=== PATIENT | male | born 1985 | race African-American/Black ===

== ENCOUNTER 2020-08-24 09:54 | Emergency (ER) | payer OTHER ==
[~2020-08-24] VITALS: Ht 180.3 cm; Wt 90.7 kg
[2020-08-24] MEDS ORDERED: LORazepam 2MG/ML-1ML VIAL IV ONE (10:15)
[2020-08-24] MEDS ORDERED: SODIUM CHLORIDE 0.9% 2,000 ML IV ONE (10:15)
[2020-08-24 10:28] LABS: Basophils # (auto) 0.1 10 ^3/uL (0-0.2); Basophils % (auto) 0.6 % (0.0-2.0); Eosinophils # (auto) 0.1 10 ^3/uL (0-0.8); Hematocrit 42.5 % (41.0-53.0); Hemoglobin 14.6 g/dL (13.5-17.5); Lymphocytes # (auto) 2.2 10 ^3/uL (0.4-5.4); Lymphocytes % (auto) 23.6 % (10.0-50.0); Mean Corpuscular Hgb Conc. 34.5 g/dL (32.0-36.0); Mean Corpuscular Volume 89.9 fL (80.0-100.0); Monocytes % (auto) 10.5 % (0.0-12.0); Neutrophils # (auto) 5.9 10 ^3/uL (1.6-8.6); Neutrophils % (auto) 64.3 % (37.0-80.0); Platelet Count (auto) 310 10^3/uL (140-450); Red Blood Cells 4.72 10^6/uL (4.5-5.90); White Blood Cell 9.2 10^3/uL (4.4-10.8)
[2020-08-24] MEDS ORDERED: SODIUM CHLORIDE 0.9% 1,000 ML IV ONE ×2 (10:30)
[2020-08-24 10:50] LABS: Albumin 4.1 g/dL (3.4-5.0); Anion Gap 5 (5-15); Blood Alcohol < 3.0 mg/dL (0-5); Blood Urea Nitrogen 15 mg/dL (7-18); Calcium 8.9 mg/dL (8.5-10.1); Carbon Dioxide 27 mmol/L (21-32); Chloride 107 mmol/L (98-107); Glucose 89 mg/dL (74-106); Potassium 3.6 mmol/L (3.5-5.1); Sodium 139 mmol/L (136-145)
[2020-08-24 10:53] LABS: Alanine Aminotransferase 30 U/L (16-61); Alkaline Phosphatase 107 U/L (45-117); Aspartate Aminotransferase 26 U/L (15-37); BUN/Creatinine Ratio 15.2; Bilirubin, Total 1.8 mg/dL (0.2-1.0); GFR African American 111 mL/min; GFR Non-African American 92 mL/min; Total Protein 7.8 g/dL (6.4-8.2)
[2020-08-24 12:10] VITALS: BP 110/65
== END 2020-08-24 14:55 | disposition home or self-care (01) ==
LOC: ER 09:54 → EDBD 09:54 → ER 14:55
DX: F41.9 Anxiety disorder, unspecified (principal); F12.10 Cannabis abuse, uncomplicated; F15.10 Other stimulant abuse, uncomplicated; Z59.0 Homelessness
CPT/HCPCS: 36415; 80053; 80320; 85025; 96361; 96374; 99283; J2060; J7030; 96367; 96368

== ENCOUNTER 2020-08-25 05:15 | Emergency (ER) | payer SELFPAY ==
[~2020-08-25] VITALS: Ht 180.3 cm; Wt 99.8 kg
[2020-08-25 07:46] VITALS: BP 131/88
[2020-08-25] MEDS ORDERED: KETOROLAC TROMETH 60MG/2ML VIAL IM ONE (08:00)
== END 2020-08-25 08:15 | disposition home or self-care (01) ==
LOC: ER 05:15
DX: L03.012 Cellulitis of left finger (principal); F17.210 Nicotine dependence, cigarettes, uncomplicated; F15.10 Other stimulant abuse, uncomplicated; F12.10 Cannabis abuse, uncomplicated; Z59.0 Homelessness
CPT/HCPCS: J1885

== ENCOUNTER 2022-10-07 22:16 | Emergency (ER) | payer MEDICAID, OTHER ==
[~2022-10-07] VITALS: Ht 180.3 cm; Wt 83.6 kg
[2022-10-08 04:26] LABS: Basophils # (auto) 0.1 10 ^3/uL (0-0.2); Basophils % (auto) 0.6 % (0.0-2.0); Eosinophils # (auto) 0.3 10 ^3/uL (0-0.8); Eosinophils % (auto) 3.7 % (0.0-7.0); Hematocrit 43.1 % (41.0-53.0); Mean Corpuscular Hemoglobin 32.9 pg (28.0-32.0); Mean Corpuscular Hgb Conc. 34.9 g/dL (32.0-36.0); Mean Corpuscular Volume 94.2 fL (80.0-100.0); Monocytes % (auto) 11.8 % (0.0-12.0); Neutrophils # (auto) 5.4 10 ^3/uL (1.6-8.6); Neutrophils % (auto) 60.9 % (37.0-80.0); Nucleated Red Blood Cells % 0.5 %; Red Blood Cells 4.58 10^6/uL (4.5-5.90); Red Cell Distribution Width 13.3 % (11.8-14.3); White Blood Cell 8.8 10^3/uL (4.4-10.8)
[2022-10-08 04:42] LABS: Potassium 3.8 mmol/L (3.5-5.1)
[2022-10-08 04:52] LABS: Albumin 3.9 g/dL (3.4-5.0); BUN/Creatinine Ratio 18.9 (10.0-20.0); Bilirubin, Total 0.6 mg/dL (0.2-1.0); Calcium 8.9 mg/dL (8.5-10.1)
[2022-10-08] MEDS ORDERED: CEPH250C PO (08:25)
[2022-10-08] MEDS ORDERED: CLIN300C70 PO (08:25)
== END 2022-10-08 10:30 | disposition left against medical advice (07) ==
LOC: ER 22:16
DX: S60.940 Unspecified superficial injury of right index finger (principal); F41.9 Anxiety disorder, unspecified; F17.210 Nicotine dependence, cigarettes, uncomplicated; F12.90 Cannabis use, unspecified, uncomplicated; F15.90 Other stimulant use, unspecified, uncomplicated; Z59.00 Homelessness unspecified; X58.XXXS Exposure to other specified factors, sequela
CPT/HCPCS: 36415; 73130; 80053; 85025

== ENCOUNTER 2024-09-09 22:33 | Emergency (ER) | payer MEDICAID, OTHER ==
[~2024-09-09] VITALS: Ht 180.3 cm; Wt 78.5 kg
[~2024-09-09 22:33] MED LIST: CEPH250C PO; CLIN1CAP70 PO
[2024-09-10 00:03] VITALS: BP 133/57; PULSE 104; RESP 16; TEMP 98; O2SAT 98
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
== END 2024-09-10 00:20 | disposition home or self-care (01) ==
LOC: ER 22:33
DX: S31.119D Laceration without foreign body of abdominal wall, unspecified quadrant without penetration into peritoneal cavity, subsequent encounter (principal); F41.9 Anxiety disorder, unspecified; F17.210 Nicotine dependence, cigarettes, uncomplicated; Z48.02 Encounter for removal of sutures; Z59.00 Homelessness unspecified; X58.XXXD Exposure to other specified factors, subsequent encounter